=== PATIENT | female | born 1985 | race Caucasian/White ===

== ENCOUNTER 2021-04-09 00:44 | Emergency (ER) | payer OTHER ==
[2021-04-09 00:52] VITALS: BP 129/85; PULSE 90; TEMP 97.9; BMI 23.1
[2021-04-09] MEDS ORDERED: DEXAMETHASONE 4 MG TABLET (FP) PO STA (01:14)
[2021-04-09] MEDS ORDERED: IBUPROFEN 400 MG TABLET (FP) PO ONE ×2 (01:14→01:24)
[2021-04-09] MEDS ORDERED: DEXAMETHASONE 4 MG TABLET (FP) ONE (01:25)
[2021-04-09 02:30] LABS: THROAT:GRP A STREP NOT DETECTED (NOTDETECTED)
[2021-04-14 08:20] LABS: SARS-CoV-2 NAA Not Detected
== END 2021-04-09 01:30 | disposition home or self-care (01) ==
LOC: FER 00:44
DX: J02.9 Acute pharyngitis, unspecified (principal); R68.83 Chills (without fever); R53.81 Other malaise; Z11.52 Encounter for screening for COVID-19
CPT/HCPCS: 87651; 87804; 99283-25; C9803; U0003; U0005